=== PATIENT | male | born 1985 | race Hispanic/Latino ===

== ENCOUNTER 2018-04-10 16:16 | Emergency (ER) | payer OTHER ==
[2018-04-10 17:09] VITALS: BMI 25.1
[2018-04-10 17:12] VITALS: BP 115/79; PULSE 70; RESP 18; TEMP 97.6
[2018-04-10] MEDS ORDERED: TDAP Vaccine 0.5 mL Syr IM ONE (17:44)
--- NOTE | 2018-04-10 17:48 | ED PDOC ---
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 Bleeding is currently controlled. He has full range of motion. No tenderness on palpation. No pain. Last tetanus was 7 years ago. Past Medical History - Infectious Disease Hx of Infectious Diseases: None - Tetanus Immunization Tetanus Immunization: Up to Date - Cardiac Hx Cardiac Disorders: No - Pulmonary Hx Respiratory Disorders: No - Neurological Hx Neurological Disorder: No - HEENT Hx HEENT Disorder: No - Renal Hx Renal Disorder: No - Endocrine/Metabolic Hx Endocrine Disorders: Yes Hx Hypothyroidism: Yes - Hematological/Oncological Hx Blood Disorders: No - Integumentary Hx Dermatological Disorder: No - Musculoskeletal/Rheumatological Hx Musculoskeletal Disorders: No - Gastrointestinal Hx Gastrointestinal Disorders: No - Genitourinary/Gynecological Hx Genitourinary Disorders: No - Psychiatric Hx Psychophysiologic Disorder: Yes Hx Anxiety: Yes Hx Substance Use: No Other/Comment: OCD - Surgical History Other/Comment: Dental Surgery - Suicidal Assessment Feels Threatened In Home Enviroment: No Family/Social History - Physician Review Nursing Documentation Reviewed: Yes Family/Social History: Unknown Family HX Smoking Status: Never Smoked Hx Alcohol Use: No Hx Substance Use: No Hx Substance Use Treatment: No Allergies/Home Meds Allergies/Adverse Reactions: Allergies iodine Allergy (Verified 04/10/18 17:09) ANAPHYLAXIS shellfish derived Allergy (Verified 04/10/18 17:09) ANAPHYLAXIS seasonal Allergy (Uncoded 04/10/18 17:09) RASH Home Medications: Home Meds Medication Instructions Recorded Confirmed Levothyroxine Sodium [Synthroid] 0.088 mg PO DAILY 02/27/13 04/10/18 PARoxetine [Paxil] 10 mg PO DAILY 04/10/18 04/10/18 Review of Systems - Physician Review All systems were reviewed & negative as marked: Yes Physical Exam Vital Signs Temp Pulse Resp BP Pulse Ox 04/10/18 17:10 97.6 F 70 18 115/79 95 Temperature: Afebrile Blood Pressure: Normal Pulse: Regular Respiratory Rate: Normal Appearance: Positive for: Well-Appearing, Non-Toxic, Comfortable Pain Distress: None Mental Status: Positive for: Alert and Oriented X 3 - Systems Exam Upper Extremity: Present: Normal ROM, NORMAL PULSES, Neurovascularly Intact, Other (Approximately 0.5 cm laceration on his radial distal right ring finger just extending into the nail bed. Bleeding is controlled. No need for sutures.). No: Tenderness, Swelling, Erythema, Deformity Medical Decision Making ED Course and Treatment: 04/10/18 17:47 Tenderness ordered and sterile dressing applied. 04/10/18 17:55 Laceration closed sterilely with Dermabond. - Medication Orders Current Medication Orders: Tetanus/Reduced Diphtheria/Acell Pertussis (Boostrix Vaccine Inj) 0.5 ml IM .ONCE ONE Stop: 04/10/18 17:45 Disposition/Present on Arrival - Present on Arrival Any Indicators Present on Arrival: No History of DVT/PE: No History of Uncontrolled Diabetes: No Urinary Catheter: No History of Decub. Ulcer: No History Surgical Site Infection Following: None - Disposition Have Diagnosis and Disposition been Completed?: Yes Diagnosis: Finger laceration Disposition: HOME/ ROUTINE Disposition Time: 17:47 Patient Plan: Discharge Patient Problems: Current Active Problems Problem Status Onset Finger laceration Acute Condition: GOOD Discharge Instructions (ExitCare): Wound Care (DC), Common Finger Injuries (DC) Additional Instructions: Dry for 2 days. Wound check in 2 days. Follow-up with PMD. Follow up in ER as needed. Referrals: PCP,NO [Primary Care Provider] - Follow up with primary Forms: Bant[employer] (Sudanese)
[2018-04-10 20:47] VITALS: O2SAT 99
== END 2018-04-10 20:47 | disposition home or self-care (01) ==
LOC: ED 16:16
DX: S61.214A Laceration without foreign body of right ring finger without damage to nail, initial encounter (principal); W22.8XXA Striking against or struck by other objects, initial encounter; Y92.89 Other specified places as the place of occurrence of the external cause; Y99.0 Civilian activity done for income or pay; Z23 Encounter for immunization
CPT/HCPCS: 12001; 90471; 90715; 99283; G0168